=== PATIENT | male | born 2000 | race Caucasian/White ===

== ENCOUNTER 2022-01-21 19:08 | Emergency (ER) | payer OTHER, SELFPAY ==
--- NOTE | ~2022-01-21 | XR_ITS ---
EXAM: XR elbow LT min 3V, XR forearm LT 2V DATE: 01/21/2022 20:33 (accession [id number]), 01/21/2022 20:32 (accession [id number]) HISTORY: FALL BACKWARDS ON FOREARM, POST SWELLING, PAIN FLEXING . COMPARISON: None available. FINDINGS: Normal mineralization. Transverse fracture of the proximal left ulna/olecranon, with intra -articular extension and 7 mm distraction. No lytic or blastic lesion. Left elbow joint effusion. No erosion or periosteal change. Posterior elbow soft tissue swelling. IMPRESSION: Transverse, intra-articular fracture of the left proximal ulna/olecranon, with 7 mm distr action. Reviewed, dictated and finalized at location [facility] IMPRESSION: Transverse, intra-articular fracture of the left proximal ulna/olec ranon, with 7 mm distraction.
[2022-01-21 19:17] VITALS: BP 149/75; PULSE 71; RESP 20; TEMP 36.6; O2SAT 100
--- NOTE | 2022-01-21 20:59 | ED.UPPEXIN ---
HPI - Extremity Injury (Upper) General Chief Complaint: Extremity Injury, Upper <Rajani Hunter NP - Last Filed: 01/25/22 21:09> Stated Complaint: left elbow injury <Rajani Hunter NP - Last Filed: 01/25/22 21:09> Time Seen by Provider: 01/21/22 20:59 <Rajani Hunter NP - Last Filed: 01/25/22 21:09> Source: patient, RN notes reviewed and old records reviewed <Rajani Hunter NP - Last Filed: 01/25/22 21:09> Mode of arrival: ambulatory <Rajani Hunter NP - Last Filed: 01/25/22 21:09> Limitations: no limitations <Rajani Hunter NP - Last Filed: 01/25/22 21:09> History of Present Illness HPI narrative: 22 year old male who presents to express care with complaints of slipping in the garage and falling onto his left elbow on the concrete floor. Patient has pain and swelling present to his left elbow with obvious deformity. Patient reports that he has been applying some ice to elbow area and taking Tylenol and Ibuprofen.Patient denies any other injury at this time, gerald hitting head or any LOC. <Rajani Hunter NP - Last Filed: 01/25/22 21:09> MD complaint: injury to: left and elbow <Rajani Hunter NP - Last Filed: 01/25/22 21:09> Onset (ago): day(s) (occurred last night) <Rajani Hunter NP - Last Filed: 01/25/22 21:09> Place: home <Rajani Hunter NP - Last Filed: 01/25/22 21:09> Severity scale (1-10): 1 <Rajani Hunter NP - Last Filed: 01/25/22 21:09> Treatments prior to arrival: cold therapy and other (Tylenol and Ibuprofen) <Rajani Hunter NP - Last Filed: 01/25/22 21:09> Related Data Allergies/Adverse Reactions: Allergies Allergy/AdvReac Type Severity Reaction Status Date / Time No Known Allergies Allergy Verified 01/21/22 21:31 <Rajani Hunter NP - Last Filed: 01/25/22 21:09> Review of Systems Review of Systems: CONSTITUTIONAL: Denies fever, chills, or sweats. CARDIOVASCULAR: Denies chest pain, palpitations, or edema. RESPIRATORY: Denies cough or dyspnea. SKIN: Denies rash or itching. Denies lacerations or abrasions MUSCULOSKELETAL: Reports injury to left elbow from fall with swelling and increased pain with any movement of left arm NEUROLOGIC: Denies numbness, or weakness. <Rajani Hunter NP - Last Filed: 01/25/22 21:09> All systems reviewed & are unremarkable except as noted in HPI and below <Rajani Hunter NP - Last Filed: 01/25/22 21:09> PMFSH Past Medical History Medical History: Medical History (Updated 01/24/22 @ 18:24 by Rajani Hunter NP) Heart abnormality ventral septal defect <Rajani Hunter NP - Last Filed: 01/25/22 21:09> Surgical History Surgical History: Surgical History (Updated 01/24/22 @ 18:24 by Rajani Hunter NP) H/O right inguinal hernia repair History of lymph node excision <Rajani Hunter NP - Last Filed: 01/25/22 21:09> Social History Social History: Social History (Updated 01/24/22 @ 18:25 by Rajani Hunter NP) Smoking status: Never smoker Alcohol intake: unknown Substance use: never Living arrangements: with family Gender identity (if verbalized by the patient): Male <Rajani Hunter NP - Last Filed: 01/25/22 21:09> Comments At time of signature, agree with nursing past medical, surgical, social and family history. There is no relevant family history pertinent to the presenting complaint <Rajani Hunter NP - Last Filed: 01/25/22 21:09> Exam Narrative: GENERAL: Well-appearing, well-nourished, and in no acute distress. HEAD: Normocephalic, atraumatic. EYES: PERRLA and EOMI. ENT: Nares clear, no rhinorrhea or epistaxis. Mucous membranes moist.TM's normal with good light reflex, throat normal with no edema or redness. NECK: Supple. no lymphadenopathy CHEST: Clear to auscultation. No respiratory distress.SAO2 100% on room air HEART: Regular rate and rhythm. No murmur heard. Normal pe
== END 2022-01-21 21:45 | disposition home or self-care (01) ==
PROVIDERS: Emergency Provider Registered Nurse
DX: S52.032A Displaced fracture of olecranon process with intraarticular extension of left ulna, initial encounter for closed fracture (principal); W01.0XXA Fall on same level from slipping, tripping and stumbling without subsequent striking against object, initial encounter; Q21.0 Ventricular septal defect
CPT/HCPCS: 29105; 73080; 73090; 99214; A4565; G0463

== ENCOUNTER 2022-01-31 01:57 | Day surgery (SDC) | payer OTHER, SELFPAY ==
[2022-01-26 14:47] VITALS: BMI 26.9
--- NOTE | 2022-01-26 14:52 | PC.NURSE ---
Report to the Outpatient Waiting Room, entrance under the green pavilion located off [facility], at time 1000 on date 01/31/22. Planned Procedure Time: 1200. Time changes happen often and if your time is changed the preop area will call you the afternoon before. - You and your visitor will be asked to self-screen and do not enter if you have any COVID symptoms. - Only one visitor is requested with a max of two and NO children visitors are allowed at this time. - The patient visitor may be requested to leave or wait in car when not with patient due to distancing restrictions. - A mask is optional within the hospital. Patients may have clear liquids (water, carbonated beverages, clear teas, apple juice) until 3 hours prior to surgery with a maximum of 20 ounces. - No food from midnight until time of surgery Take the following medications with a SIP of water the morning of surgery: TYLENOL IF NEEDED Medications to discontinue per physician: VITAMIN Date to take last dose: 01/27/22 Please no make-up, nail qatari, hairspray, perfume, deodorant, or body powder the day of surgery. No jewelry (including any body piercings) or valuables the day of surgery, leave them at home. Please take a shower or bath the night before, or the morning of, surgery with an antibacterial soap. Wear comfortable, loose fitting clothing.. - Jewelry must be removed prior to entering the operating room. Rings and piercings that are not removed may be cut off. - The hospital will not accept responsibility for valuables. - Please leave all valuables, including medications, at home the day of surgery. If you are going home after surgery, a licensed commercial trailer truck driver must drive you home. - NO public transportation without another adult if you receive anesthesia. - We recommend that an adult stay with you for 24 hours following discharge. - We also recommend that you do not drive, make important decision, drink alcoholic beverages, or take any drugs that were not prescribed by your health care provider for at least 24 hours after your discharge time. Follow any additional instructions given to you from your surgeon. If you or anyone in your household have experienced Covid symptoms in the past week, please notify your surgeon or the nurse liaison at the phone number below for possible testing. Telephone instructions given to PT - LAN CUENCA and asked if any additional questions and then verbalized understanding. Patient advised to call surgeon office or pre surgery nurse liaison [phone] if any additional questions.
[2022-01-31] VITALS (12 sets, daily range): BP systolic 111–146; BP diastolic 53–84; PULSE 60–90; RESP 14–20; TEMP 36.9; O2SAT 94–100
--- NOTE | ~2022-01-31 | XR_ITS ---
EXAMINATION: XR surgery orthopedic DATE: 01/31/2022 13:23 INDICATION: ORIF left elbow fracture TECHNIQUE: 3 fluoroscopic images of the left elbow were obtained during procedure performed by Dr. Ray lopez. Radiologist was not present for the imaging or procedure. The amount of fluoroscopy time used during this procedure was 4.6 minutes. COMPARISON: None. FINDINGS: Reduction and dorsal plate and screw fixation of a transverse fracture across the base of the left ol ecranon. Alignment appears near-anatomic with minimal residual lucent fracture gap without appreciabl e incongruity along the articular surface. No other fractures identified. Expected small amount of po stoperative intra-articular contrast. IMPRESSION: 1. Essentially anatomic alignment post open reduction and internal fixation of an intra-articular fra cture across the base of the left olecranon. Reviewed, dictated and finalized at location A. ENT CARE TECHNICIAN IMPRESSION: 1. Essentially anatomic alignment post open reduction and internal fixation of an intra-articular fracture across the base of the left olecranon.
--- NOTE | 2022-01-31 10:08 | WPDHPUPDATE1 ---
History and Physical Update Update Date/Time: 01/31/22 10:08 History and Physical has been reviewed, including an updated exam of the patient. There are NO changes in the patient's condition. Risks, benefits, and alternatives have been discussed and questions answered. Patient agrees to proceed with procedure.
--- NOTE | 2022-01-31 10:23 | P.PNAN_ITS ---
Anes - Initial Pre Proc Eval Procedure: Operation Date: 01/31/22 11:00 Proposed Procedures p Open Reduction Internal Fixation Left Elbow Olecranon Fracture - Milad Shi MD Date/Time: 01/31/22 10:23 Surgeon: Milad Shi MD Pre Op Diagnosis: Lt Elbow Olecranon Fx Patient Data Age: 22 Gender: M Height: 1.88 m Weight: 95 kg Allergies Allergy/AdvReac Type Severity Reaction Status Date / Time No Known Allergies Allergy Verified 01/26/22 14:46 Home Medications Medication Instructions Recorded Confirmed Type acetaminophen 500 mg tablet 1,000 mg PO DAILY PRN Pain 01/26/22 01/26/22 History (Tylenol Extra Strength) ibuprofen 200 mg tablet 400 mg PO BID PRN Pain 01/26/22 01/26/22 History multivitamin 1 tablet PO DAILY 01/26/22 01/26/22 History Patient hx anesthesia problems: none Family hx anesthesia problems: none Results Review: All pre-operative results and documents have been reviewed as part of the pre- operative evaluation. [facility] Past Medical History Medical History Heart abnormality ventral septal defect Surgical History Surgical History H/O right inguinal hernia repair History of lymph node excision Social History Social History Smoking status: Never smoker Alcohol intake: never Substance use: never Substance use type: does not use Living arrangements: with family Gender identity (if verbalized by the patient): Male Spiritual care concerns: No Anes - Eval Final PreProcedure Day of Procedure 01/31/22 10:23 Patient weight: overweight Heart: regular rate and rhythm Lungs: clear to auscultation Airway: Mallampati scale class II Neurological: alert and oriented Last oral intake: >/= 8 hours ASA classification: II Emergent: no Anesthetic plan: proceed Anesthesia type and monitoring: general LMA and standard monitoring Results Review: All pre-operative results and documents have been reviewed as part of the pre- operative evaluation. Informed Consent: The patient's anesthetic plan and its attendant risks and benefits were discussed with the patient/family/POA. Questions were solicited and answers provided to the satisfaction of the patient/family/POA.
--- NOTE | 2022-01-31 10:29 | WPDANESPNB ---
Anes - Peripheral Nerve Block Date/Time: 01/31/22 10:29 I have discussed with the patient/family/POA the placement of a peripheral nerve block for post-operative pain management, including associated risks, benefits, complications, and side effects. Alternative methods of post-operative analgesia were detailed. Questions were solicited and answers provided to the satisfaction of the patient/family/POA. Time-Out: A pre-procedural Time-Out was completed immediately before starting the procedure and confirmed: Patient Identification, Site, Procedure, Patient Position and the Availability of Requisite Equipment. Clinical Indications: Acute post-operative pain management requested by the operative surgeon. Nerve Block Insertion Note Anes-nerve block: supraclavicular left Patient position: supine Skin prep: chlorhexidine Needle: 22 gauge, stimulating, insulated echogenic needle. Needle length: 50 mm Technique: ultrasound Injectate: bupivacaine 0.5% with epi 5 mcg/ml (30cc- no epi) Observations: tolerated well Complications: none Procedure start time:: 1055 Procedure end time:: 105
[2022-01-31] MEDS: LACTATED RINGERS 1,000 ML 30 ML IV CONT ×2 (10:40→14:09)
[2022-01-31] MEDS: CELECOXIB 200 MG CAPSULE PO (10:40)
[2022-01-31] MEDS: ACETAMINOPHEN 500 MG TABLET 1000 MG PO (10:40)
--- NOTE | 2022-01-31 11:09 | WPDHPUPDATE1 ---
History and Physical Update Update Date/Time: 01/31/22 11:09 History and Physical has been reviewed, including an updated exam of the patient. There are NO changes in the patient's condition. Risks, benefits, and alternatives have been discussed and questions answered. Patient agrees to proceed with procedure. PLAN IS FOR LEFT ELBOW ORIF
--- NOTE | 2022-01-31 14:24 | P.OP_ITS ---
Procedure Note - Detailed Date of Procedure 01/31/22 Pre-op Diagnosis Lt Elbow Olecranon Fx Post-op Diagnosis Same Procedure Performed ORIF LEFT OLECRANON FRACTURE Surgeon Milad Shi MD Anesthesia General Description of Procedure HE PATIENT WAS TAKEN TO THE OR AND INTUBATED. THE LEFT UPPER EXTREMITY WAS P REPPED AND DRAPED. THE TOURNIQUET WAS INFLATED. INCISION WAS MADE ON THE POSTERIOR ASPECT OF THE ELBOW DOWN TO FASCIA. THE FASCIA WAS INCISED AND DISSECTED DOWN TO BONE. THE FRACTURE WAS IDENTIFIED. FIBROUS TISSUE WAS REMOVED FROM THE FRACTURE SITE. HEMATOMA WAS DERIDED FROM THE FRACTURE SITE WELL. THE FRACTURE WAS REDUCED TO ANATOMIC POSITION WITH FRACTURE CLAMPS AND K WIRES. AN ACUMED OLECRANON PLATE WAS USED TO BRIDGE THE FRACTURE FRAGMENTS. SCREWS WERE PLACE USING STANDARD AO TECHNIQUE AND ALL HAD GOOD BITES. XRAYS WERE TAKEN USING FLUOROSCOPY AND IT WAS FOUND THAT THE FRACTURE FRAGMENTS AND HARDWARE WERE IN GOOD POSITION. THE WOUND WAS WASHED WITH STERILE BETADINE AND WATER FOR 3 MINUTES THEN WASHED AGAIN WITH STERILE WATER. THE TOURNIQUET DEFLATED AND THE BLEEDERS WERE CAUTERIZED. THE DEEP LAYERS OF FASCIA WERE REPAIRED WITH 0 VICRYL, THE SUB CUTANEOUS LAYER WITH 2-0 VICRYL AND THE SKIN WITH CARLY. THE WOUND WAS WASHED AGAIN. STERILE DRESSING WAS APPLIED THEN A PLASTER SPLINT WAS APPLIED. THE PATIENT WAS EXTUBATED AND SENT TO RECOVERY ROOM Estimated Blood Loss 20 Drains No Packing No Pathology None sent Complications No immediate complications Condition Stable Disposition PACU
[2022-01-31] MEDS: ONDANSETRON INJ 4 MG/2 ML VIAL IV PUSH (14:48)
[2022-01-31] MEDS: fentaNYL CITRATE INJ (*CRX) 100 MCG/2 ML VIAL 25 MCG IV PUSH (15:26)
[2022-01-31] MEDS: oxyCODONE HCL (*CRX) 5 MG TAB IR PO (17:03)
== END 2022-01-31 17:15 | disposition home or self-care (01) ==
PROVIDERS: PCP Hospitalist; Visit Provider Orthopaedic Surgery
PROC: (CPT 24685; principal; 2022-01-31 11:00)
DX: S52.022A Displaced fracture of olecranon process without intraarticular extension of left ulna, initial encounter for closed fracture (principal); G89.18 Other acute postprocedural pain; W18.30XA Fall on same level, unspecified, initial encounter; Q21.0 Ventricular septal defect
CPT/HCPCS: 24685; 64415; 99199; A9270; C1713; C1769; J0330; J0690; J1100; J2250; J2405; J2704; J3010; J7120

== ENCOUNTER 2022-05-17 10:08 | Emergency (ER) | payer BC, SELFPAY ==
[2022-05-17 10:14] VITALS: BP 123/74; PULSE 74; RESP 16; TEMP 36.8; O2SAT 100
--- NOTE | 2022-05-17 10:14 | ED.UPPEXIN ---
HPI - Extremity Injury (Upper) General Chief Complaint: Extremity Problem,Nontraumatic Stated Complaint: right pointer finger Time Seen by Provider: 05/17/22 10:14 Source: patient and RN notes reviewed History of Present Illness HPI narrative: Patient is a 22-year-old male who presents to urgent care with complaints of swelling and pain to the right index finger. Patient denies any injury. 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 Patient has not attempted to puncture the paronychia. No other acute complaints. No acute distress noted. Patient aware of the plan of care. Some parts of this dictation were generated by voice recognition software and may contain typographical and/or grammatical inaccuracies. Related Data Home Medications Medication Instructions Recorded Confirmed multivitamin 1 tablet PO DAILY 01/26/22 05/17/22 Allergies Allergy/AdvReac Type Severity Reaction Status Date / Time No Known Allergies Allergy Verified 05/17/22 10:21 Review of Systems Review of Systems: CONSTITUTIONAL: Denies fever, chills, or sweats. EYES: Denies visual changes, redness, or discharge. ENT: Denies rhinorrhea, congestion, sore throat, or otalgia. CARDIOVASCULAR: Denies chest pain, palpitations, or edema. RESPIRATORY: Denies cough or dyspnea. GASTROINTESTINAL: Denies abdominal pain, nausea, vomiting, or diarrhea. GENITOURINARY: Denies dysuria or hematuria. SKIN: Reports of swelling and pain surrounding the cuticle of the right index finger MUSCULOSKELETAL: Denies back pain, joint pain, or myalgia. NEUROLOGIC: Denies headache, numbness, or weakness. All other systems reviewed are negative, except as documented in HPI. [facility] Past Medical History Medical History Heart abnormality ventral septal defect Surgical History Surgical History H/O right inguinal hernia repair History of lymph node excision History of open reduction and internal fixation (ORIF) procedure Left Olecranon 01/31/2022 Social History Social History Smoking status: Never smoker Alcohol intake: never Substance use: never Substance use type: does not use Living arrangements: with family Gender identity (if verbalized by the patient): Male Spiritual care concerns: No Comments At the time of my signature, I reviewed and agree with the nursing past medical, surgical, social, and family history. There is no relevant family history pertinent to the patient complaint. Exam Narrative: GENERAL: This is a well-nourished, well-developed patient, in no apparent distress. HEAD: normocephalic, atraumatic. EYES: PERRL. Sclera clear/white. Vision is grossly intact. EARS: External ears normal, auditory canals clear and without drainage, TMs normal without perforation. Hearing grossly intact. NOSE: External nose normal with no obvious nasal discharge, nares without redness, no rhinorrhea. THROAT: Mucous membranes moist, posterior pharynx clear. NECK: Neck supple SKIN: Mild to moderate erythemic paronychia to the right index finger, base of the cuticle. Warm, intact with no suspicious lesions or rash, good texture and turgor. NEURO: awake, alert, and oriented to person, place and time. There were no obvious focal neurologic abnormalities. EXTREMITIES: No clubbing, cyanosis, or edema. Course Course Level of Care: Express Care Visit Vital Signs Vital signs: Vital Signs Temperature 98.2 F 05/17/22 10:14 Pulse Rate 74 05/17/22 10:14 Respiratory Rate 16 05/17/22 10:14 Blood Pressure 123/74 05/17/22 10:14 Pulse Oximetry 100 05/17/22 10:14 Oxygen Delivery Room Air 05/17/22 10:14 Temperature 98.2 F 05/17/22 10:14 Pulse Rate 74 05/17/22 10:14 Respiratory Rate 16 05/17/22 10:14 Blood Pressure 123/74 05/17/22
== END 2022-05-17 10:45 | disposition home or self-care (01) ==
PROVIDERS: Emergency Provider Nurse Practitioner Family; PCP Hospitalist
DX: L03.011 Cellulitis of right finger (principal)
CPT/HCPCS: 99213; G0463

== ENCOUNTER 2023-12-22 18:43 | Emergency (ER) | payer BC, SELFPAY ==
[2023-12-22 18:58] VITALS: BP 137/65; PULSE 71; RESP 20; TEMP 37.1; O2SAT 100
--- NOTE | 2023-12-22 19:05 | ED_ITS ---
HPI - Eye Problem General Chief complaint: Eye Problems Stated complaint: Right Eye/Foreign Body in Eye Time Seen by Provider: 12/22/23 19:13 Source: patient, RN notes reviewed and old records reviewed Mode of arrival: ambulatory Limitations: no limitations History of Present Illness HPI Narrative: 23 year old male presents to express care with complaints of right eye irritation and redness. Patient reports that he was at work today and had his safety glasses on and felt something go into his eye. Patient reports that he washed his right eye out with eye solution and it did feel better for a while but irritation of right eye has increased. Patient states that he thinks he might of gotten a wood chip in his eye.Patient denies sharp pain to his right eye MD chief complaint: eye pain, eye redness and foreign body (possible) Onset (ago): hour(s) (1300) Eye Symptoms: redness, pain and foreign body sensation Place: work Severity scale (1-10): 4 Treatments Prior to Arrival: irrigated eye Related Data Home Medications Medication Instructions Recorded Confirmed multivitamin 1 tablet PO DAILY 01/26/22 12/22/23 Allergies Allergy/AdvReac Type Severity Reaction Status Date / Time No Known Allergies Allergy Verified 12/22/23 19:30 Review of Systems Review of Systems: CONSTITUTIONAL: Denies fever, chills, or sweats. EYES: Denies visual changes. Reports redness,, irritation,feels like possible foreign body right eye ENT: Denies rhinorrhea, congestion, sore throat, or otalgia. CARDIOVASCULAR: Denies chest pain, palpitations, or edema. RESPIRATORY: Denies cough or dyspnea. SKIN: Denies rash or itching. NEUROLOGIC: Denies headache All systems reviewed & are unremarkable except as noted in HPI and below PMFSH Past Medical History Medical History Heart abnormality ventral septal defect Surgical History Surgical History H/O right inguinal hernia repair History of lymph node excision History of open reduction and internal fixation (ORIF) procedure Left Olecranon 01/31/2022 Social History Social History Smoking status: Never smoker Alcohol intake: never Substance use: never Substance use type: does not use Living arrangements: with family Gender identity (if verbalized by the patient): Male Spiritual care concerns: No Comments At time of signature, agree with nursing past medical, surgical, social and family history. There is no relevant family history pertinent to the presenting complaint Exam Narrative: GENERAL: Well-appearing, well-nourished, and in no acute distress. HEAD: Normocephalic, atraumatic. EYES: PERRLA and EOMI. Upper and lower eyelids unremarkable. No periorbital cellulitis noted. Sclera and conjunctivae injected right eye with irritation feeling no drainage, see procedure note ENT: Nares clear, no rhinorrhea or epistaxis. Mucous membranes moist. NECK: Supple.no lymphadenopathy CHEST: Clear to auscultation. No respiratory distress.SAO2 100% on room air HEART: Regular rate and rhythm. No murmur heard. Normal peripheral pulses. SKIN: Warm, dry, no rash. NEURO: No focal deficits. Alert and oriented x3. Course Course Emergency Course: Patient is aware of diagnosis, understands and agrees to treatment plan. Anticipatory guidance given. Patient agrees to follow-up as directed and is aware of reasons to seek care at the emergency department. Portions of this record may have been created with voice recognition software Level of Care: Express Care Visit Vital Signs Vital signs: Vital Signs Temperature 37.1 C 12/22/23 18:58 Pulse Rate 71 12/22/23 18:58 Respiratory Rate 20 12/22/23 18:58 Blood Pressure 137/65 12/22/23 18:58 Pulse Oximetry 100 12/22/23 18:58 Oxygen Delivery Room Air 12/22/23 18:58 Temperature 37.1 C 12/22/23 18:58 Pulse Rate 71 12/22/23 18:58 Respiratory Rate 20 12/22/23 18:58 Blood Pressure 137/65 12/22/23 18:58 Pulse Oximetry 100 12/22/23 18:58 Oxygen Delivery Room Air 12/22/23 18:58 Reviewed Procedures FB Removal Eye Foreign Body #1: Foreign Body Removal Date: 12/22/23 Foreign Body Removal Time: 19:30 Time Out performed: Yes Location: eye (R) Topical anesthetic used: tetracaine (0.5% 2 drops) Foreign body: other (none observed) Evidence of corneal penetration: No Technique: irrigation, cotton tip swab and other (magnification) Procedure performed under: direct visualization with magnification and other (jiang lamp) Post-procedure medication: topical anesthetic (tetracaine 0.5% 2 drops) Patient tolerated procedure: well Complications: other (none noted) Foreign Body Removal Narrative: Right eye localized with Tetracaine 0.5% 2 drops and eye examined with mag nification, irrigated and cotton swab under eye lids and over eye surface. Right eye stained with Fluorescein stain and eye examined using jiang lamp and corneal abrasion noted at 10.o'clock.Right eye irrigated with sterile eye wash solution to rinse dye from right eye.Tetracaine 0.5% 2 drops instilled in right eye as comfort measure. MDM - Eye Problem MDM Narrative Medical decision making narrative: Consideration of the following conditions may be warranted for the presenting problem, they are not final diagnoses: Bacterial conjunctivitis, allergic conjunctivitis, viral conjunctivitis, foreign body, blepharitis, chalazion, hordeolum, corneal abrasion.? Exam findings show no acute concerns or changes; patient is non-toxic appearing and is in no distress.? Patient is appropriate for outpatient treatment and follow-up. Differential Diagnosis Differential diagnosis: Likely corneal abrasion, subconjunctival hemorrhage and other (pain and redness right eye) Medical Records Attestation: I reviewed the patient's medical records. Critical Care Time Critical Care Time Critical Care Time: No Discharge Plan Discharge Clinical Impression: Corneal abrasion, right Qualifiers: Encounter type: initial encounter Qualified Code(s): S05.01XA - Injury of conjunctiva and corneal abrasion without foreign body, right eye, initial encounter Patient Disposition: Home, Self-Care Condition: Stable Instructions: Antibiotic Form, Corneal Abrasion (ED) Additional Instructions: Cold compresses to the eyes for comfort May need warm compresses to remove debris in the morning When cleaning the eyes used a washcloth in one direction then change washcloths or use a cotton ball in one direction and then his cotton balls Eyedrops as directed--may be more soothing if left in the refrigerator Do not share medicine--do not touch the eye with the medicine Tylenol or ibuprofen for pain Avoid screen time--television, computer, tablet or phone. Also no reading or driving Follow-up with PCP or merchandise carrier as directed if no improvement in 48 hours If your symptoms persist, change or worsen significantly before you can contact your personal physician then please, without delay, go to the emergency department for further evaluation. Follow-up with PCP in 7-10 days or sooner if needed Follow up with PCP soon in regards to your blood pressure which is elevated above threshold for referral. Blood pressure above 120/80 may indicate pre- hypertension. Prescriptions: New ofloxacin 0.3 % drops See Rx Instructions .ROUTE .COMPLEX Qty: 10 0RF Rx Instructions: put 1-2 drps into affected eye(s) every 2-4 h x 2 days, then 1-2 drps 4 times/day days 3-7 No Action multivitamin Tablet 1 tablet PO DAILY Follow-up/Referrals: Joseph,MD Jori [Primary Care Provider] - Stand Alone Forms: Work/School Release IP Time of Disposition: 19:33 Quality [place] Coma Scale Eyes: Open Verbal: Oriented and Alert Motor: Follows Commands [place] Coma Total Score: 15
== END 2023-12-22 19:35 | disposition home or self-care (01) ==
PROVIDERS: Emergency Provider Registered Nurse; PCP Hospitalist
DX: S05.01XA Injury of conjunctiva and corneal abrasion without foreign body, right eye, initial encounter (principal); X58.XXXA Exposure to other specified factors, initial encounter; Y99.0 Civilian activity done for income or pay
CPT/HCPCS: 99213; A9270; G0463

== ENCOUNTER 2024-10-08 14:19 | Emergency (ER) | payer BC, SELFPAY ==
--- OUTSIDE RECORDS SUMMARY | 2024-10-08 14:23 | XMS_ITS | Clinical Summary ---
Author Organization [facility] [address] Address [address] [place] [address] Phone Care Team Providers Care Rehabilitation Inspector Name Role Phone Jori Ruiz MD Primary Care Provider [phone] Allergies Active Allergy Reactions Criticality Noted Date Comments Banana Swelling Medium 06/09/2020 Mouth tongue throat swelling Fish Containing Products Unknown 09/15/2014 Peanut Butter Flavor Itching Low 06/09/2020 Medications No known medications Active Problems Problem Noted Date Diagnosed Date Sebaceous cyst 01/27/2020 Overview (01/27/2020): Left shoulder/upper back area Skin infection 02/11/2019 Overview (02/14/2019): 02-11-19 abscess to R of nose Septra & clinda (grew Staph aureus very sensitive) Food allergy 08/09/2012 Overview (10/27/2016): FISH - f/u Dr. Quan Ventricular septal defect 01/09/2012 Overview (06/07/2018): Grade 2/6 murmer. May 2018: Restrictive VSD with slight AI, R sided aortic arch. F/u May 2019. 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 Xyzal 5 mg up to every 12 hours, Flonase, Singulair [address] Quan 11/12. IT 2018. 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 Immunizations Immunization Administration Dates Next Due DTaP 01/08/2006, 4,2002,05/05,2002 HPV9 07/18/2019,03/17/2019,01/13/2019 Hep B, Adolescent or Pediatric 2002,2001,2002 Hib (HbOC) 04/10/2003, 3,2002,03/10 IPV 01/08/2006, 4,2002,03/10 Influenza, Quadrivalent, Spl it, Intramuscular 01/10/2017,2016 Influenza, Quadrivalent, Spl it, Preservative Free, Intramuscular 01/27/2020,01/13/2019,01/11/2018 Influenza, Split 01/06/2013,01/05/2012 Influenza, Trivalent, IM (MDV) 5,01/06/2014,01/06/2011,01/18,01/10/2008 Influenza, Unspecified 10/27/2020(Deferred: Jeannette ent Refused) MMR 01/08/2006,01/09/2003 Meningococcal MCV4P (Menactra) 01/11/2018,2013 Pneumococcal Conjugate 7-Valent 04/10/19 04,2002,2002,03/10 Tdap 01/06/2014 Varicella 01/08/2006,01/09/2003 Surgical History Surgery Date Site/Laterality Comments HERNIA REPAIR 02/26/2005 - 02/25/2006 Left INCISION AND DRAINAGE 02/26/2003 - 02/26/2004 Lymph node TONSILLECTOMY/ADENOIDECTOMY 02/26/2009 - 02/25/2010 Medical History Medical History Date Comments 2002 10-9 of nl pregn teddy A+/O+ Fracture of right forearm 2010 VSD (ventricular septal defect) Family History Medical History Relation Name Comments Clotting disorder Father Lupus anti coagulant (01/09 Gino WHITE) Clotting disorder Father's Brother Breast cancer Other 1 Diabetes Other 2 Asthma Other 3 Hyperlipidemia Other 4 Allergies Other 5 Sudden Other 6 NONE Relation Name Status Comments Father Father's Brother Alive Other 1 Other 2 Other 3 Other 4 Other 5 Other 6 Social History Tobacco Use Types Packs/Day Years Used Date Smoking Tobacco: Never Smokeless Tobacco: Never Tobacco Cessation:Counseling Given: Not Answered AUDIT-C Answer Date Recorded Q1: How often do you have a drink containing alcohol? Never 01/12/2022 Q2: How many drinks containi ng alcohol do you have on a typical day when you are drinking? Patient does not drink Q3: How often do you have si x or more drinks on one occasion? 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 Oxygen Saturation 95% 12/18/2023 3:49 PM CDT Inhaled Oxygen Concentration - - Weight 94.5 kg (208 lb 5.4 oz) 12/18/2023 3:49 P M CDT Height 185.8 cm (6' 1.15) 12/18/2023 3:49 PM CD T Body Mass Index 27.37 12/18/2023 3:49 PM CDT Plan of Treatment Health Maintenance Due Date Last Done Comments Hepatitis C Screening 2002 Meningococcal B Vaccine (1 o f 2 - Standard) 2018 Regular Well Visit/Exam 18-64 06/09/2021 06/09/2020, 01/27/2020 Depression Screening 01/12/2023 01/12/2022, 10/27/2020, 06/09/2020 Covid-19 Vaccine (3 - 2023-2 5 season) 2023 07/31/2020, 07/01/2020 DTaP/Tdap/Td Vaccine (7 - Td or Tdap) 2024 01/06/2014, 01/08/2006, 04/10/2003, Additional history exists Influenza Vaccine (#1) 2024 , 01/13/2019, 01/11/2018, Additional history exists Hepatitis B Screening Completed 2002 , 2002, 2002 Pneumococcal vaccine <65 Completed 004, 2002, 2002, Additional history exists Varicella Vaccines Completed 01/08/2006, 01/09/2003 HPV Vaccines Completed 07/18/2019, 02/27, 01/13/2019 Insurance [facility] Address: [address] [address] [place] [address] [employer] [facility] [facility] Address: [address] [address] [place] [address] [facility] Address: [place] [address] Care Teams Rehabilitation Inspector Relationship Specialty Start Date End Date Jori Ruiz MD [address] [place] [address] PCP - General Family Medicine 01/12/22
[2024-10-08 14:27] VITALS: BP 123/56; PULSE 65; RESP 18; TEMP 36.4; O2SAT 99
--- NOTE | 2024-10-08 14:39 | ED.EAR ---
HPI - Ear Problem General Chief complaint: Ear Stated complaint: Ear clean Time Seen by Provider: 10/08/24 14:20 Source: patient Mode of arrival: ambulatory Limitations: no limitations History of Present Illness HPI Narrative: Gino is a 24-year-old male patient presenting to the clinic today with complaints of muffled hearing and feeling as though his right ear is clogged. He states that this has been going on for a couple days. Denies any ear pain, fever, chills, body aches. Has not used any mwxc-lgg-hybmxbc medications to treat his symptoms. Related Data Home Medications ?Medication ?Instructions ?Recorded ?Confirmed ?Last Taken ?Type multivitamin 1 tablet PO DAILY 01/26/22 12/22/23 Unknown History Allergies Allergy/AdvReac Type Severity Reaction Status Date / Time No Known Allergies Allergy Verified 10/08/24 14:29 Review of Systems Review of Systems: Pertinent positives per HPI. Patient denies any fever, chills, rash, headache, visual changes, dizziness, cough, runny nose, sore throat, shortness of breath, chest pain, palpitations, nausea, vomiting, diarrhea, constipation, abdominal pain, or any urinary issues. PMFSH Past Medical History Medical History Heart abnormality ventral septal defect Surgical History Surgical History H/O right inguinal hernia repair History of lymph node excision History of open reduction and internal fixation (ORIF) procedure Left Olecranon 01/31/2022 Social History Social History Smoking status: Never smoker Alcohol intake: never Substance use: never Substance use type: does not use Living arrangements: with family Gender identity (if verbalized by the patient): Male Spiritual care concerns: No Comments At the time of my signature, I reviewed and agree with the nursing past medical, surgical, social, and family history. There is no relevant family history pertinent to the patient complaint. Exam Narrative: General: Well-developed, well nourished, in no apparent distress Head: Normocephalic, atraumatic Eyes: Pupils equally round and reactive to light bilaterally, EOM intact, sclera and conjunctive clear, no discharge, lids normal Ears: Right cerumen impaction, ear irrigation was performed, TMs intact and clear, right ear canal clear and left ear canal ceruminous, no drainage, grossly hearing normal. Nose: Nares patent, no discharge, no inflammation, no sinus tenderness. Mouth: Oropharynx without lesions or masses, good dentition, MMM. Neck: Supple, trachea midline, no enlargement of anterior or posterior cervical nodes, no thyroid masses or goiter palpable. Cardio: Regular rate and rhythm, s1 and s2 normal, no murmur appreciated. Resp: Clear to auscultation bilaterally anteriorly and posteriorly, no rhonchi, rales, wheezing or rubs Course Course Emergency Course: Portions of this record may have been created with voice recognition software. Level of Care: Express Care Visit Vital Signs Vital signs: Vital Signs Temperature 36.4 C L 10/08/24 14:27 Pulse Rate 65 10/08/24 14:27 Respiratory Rate 18 10/08/24 14:27 Blood Pressure 123/56 L 10/08/24 14:27 Pulse Oximetry 99 10/08/24 14:27 Oxygen Delivery Room Air 10/08/24 14:27 Temperature 36.4 C L 10/08/24 14:27 Pulse Rate 65 10/08/24 14:27 Respiratory Rate 18 10/08/24 14:27 Blood Pressure 123/56 L 10/08/24 14:27 Pulse Oximetry 99 10/08/24 14:27 Oxygen Delivery Room Air 10/08/24 14:27 Vital signs reviewed Procedures Ear Wax Removal Right Ear: Ear Wax Removal Date: 10/08/24 Results: Re-examined: cerumen removed completely TM Examination: TM(s) intact, normal appearance Ear Canal Exam: atraumatic Patient Tolerated Procedure: well and no complications Complications: no problems Technique: ear canal irrigated and ear canal curetted Additional Comments: Verbal consent obtained for ear irrigation. Risk and benefits explained and patient voiced understanding. Ear irrigation performed using an elephant ear and spray water bottle. Mixture of 1/2 peroxide 1/2 water used to irrigate ear canal. Cerumen impaction cleared and TM visualized without redness. Lighted curette was used to remove cerumen impaction from the external distal canal Grossly hearing normal. Patient tolerated procedure well Medical Decision Making MDM Narrative Medical decision making narrative: At the time of visit patient is resting comfortably on the exam table. Patient appears to be nontoxic. Complaints of muffled hearing and feeling as though his right ear is clogged. He states that this has been going on for a couple days. Denies any ear pain, fever, chills, body aches. Has not used any lwne-wam-tksaihg medications to treat his symptoms. On exam patient has impacted cerumen in the right ear canal Procedures: Ear irrigation was performed in the clinic on the right ear. Cerumen removed successfully. Patient tolerated well Plan: Patient had cerumen impaction to the right ear canal. Supportive measures were discussed with the patient and they voiced understanding discharge instructions and agrees to treatment plan. Return precautions reviewed Differential Diagnosis Differential Diagnosis: Otitis media, otitis externa, eustachian tube dysfunction, cerumen impaction, upper respiratory infection, serous otitis Vital Signs Vital Signs: Vital Signs Temperature 36.4 C L 10/08/24 14:27 Pulse Rate 65 10/08/24 14:27 Respiratory Rate 18 10/08/24 14:27 Blood Pressure 123/56 L 10/08/24 14:27 Pulse Oximetry 99 10/08/24 14:27 Oxygen Delivery Room Air 10/08/24 14:27 Temperature 36.4 C L 10/08/24 14:27 Pulse Rate 65 10/08/24 14:27 Respiratory Rate 18 10/08/24 14:27 Blood Pressure 123/56 L 10/08/24 14:27 Pulse Oximetry 99 10/08/24 14:27 Oxygen Delivery Room Air 10/08/24 14:27 Discharge Plan Discharge Clinical Impression: Cerumen impaction Qualifiers: Laterality: right Qualified Code(s): H61.21 - Impacted cerumen, right ear Patient Disposition: Home Condition: Stable Instructions: Antibiotic Form Additional Instructions: Ear irrigation was performed successfully in the clinic today. May instill OTC Debrox ear drops- 4 drops in each ear nightly for 3 consecutive nights once a month Follow-up with your primary care doctor as needed Patient Language: Latvian Prescriptions: No Action multivitamin Tablet 1 tablet PO DAILY Follow-up/Referrals: PHYSICIAN,FREIGHT RATE ANALYST [Primary Care Provider] - Time of Disposition: 14:48 Quality NIHSS Nursing Documentation ED NIHSS nursing documentation: reviewed/agree
== END 2024-10-08 14:51 | disposition home or self-care (01) ==
PROVIDERS: Emergency Provider Nurse Practitioner Family
DX: H61.21 Impacted cerumen, right ear (principal); Q21.0 Ventricular septal defect
CPT/HCPCS: 69209; 99212; A9270; G0463